=== PATIENT | female | born 1995 | race African-American/Black ===

== ENCOUNTER 2017-01-16 22:49 | Emergency (ER) | payer SELFPAY ==
[~2017-01-16] VITALS: Ht 160 cm; Wt 53.5 kg
[2017-01-16] MEDS ORDERED: ALBUTEROL SULFATE 2.5 MG/3 ML NEBU. CONT NEB ONE (23:30)
[2017-01-16] MEDS ORDERED: IPRATROPIUM BROMIDE 0.5 MG/2.5 ML NEBU. NEB ONE (23:30)
[2017-01-17] MEDS ORDERED: predniSONE 20 MG TABLET PO ONE (00:15)
[2017-01-17 02:16] VITALS: BP 107/55
--- NOTE | 2017-01-17 04:22 | PHYS DOC ---
Past Medical History Past Medical History: Ectopic Past Surgical History: Other Additional Past Surgical Histo: miscarriage Alcohol Use: None Drug Use: None Adult General Chief Complaint Chief Complaint: ASTHMA HPI HPI Patient is a 21 year old female presents with shortness of breath, cough. Symptoms began 2 days Progressed. Patient's Nonsmoker Denies History of Asthma or Chronic Lung Disease. Patient Reports Chest Wall Pain Worse with Deep Breathing and Cough. No Fever Chills or Sweats. No Leg Pain or Swelling. No Other Acute Symptoms or Complaints. is a nonsmoker, but reports secondhand smoke at work. Review of Systems Review of Systems Review symptoms as per history of present illness. All other review symptoms are negative. Current Medications Current Medications Current Medications Medications (Trade) Dose Ordered Sig/Ada Start Time Stop Time Status Last Admin Dose Admin Albuterol Sulfate (Ventolin Neb Soln) 10 mg 1X ONCE 01/16/17 23:30 01/16/17 23:31 DC 01/16/17 23:37 10 MG Ipratropium [place] (Atrovent) 0.5 mg 1X ONCE 01/16/17 23:30 01/16/17 23:31 DC 01/16/17 23:37 0.5 MG Prednisone (Prednisone) 60 mg 1X ONCE 01/17/17 00:15 01/17/17 00:16 DC 01/17/17 00:15 60 MG Allergies Allergies Allergies Coded Allergies Type Severity Reaction Last Updated Verified No Known Drug Allergies 01/16/17 No Physical Exam Physical Exam Constitutional: Well developed, well nourished, no acute distress, non-toxic appearance. [] HENT: Normocephalic, atraumatic, bilateral external ears normal, oropharynx moist, no oral exudates, nose and congestion with clear rhinorrhea. [] Eyes: PERRLA, EOMI, conjunctiva normal, no discharge. [] Neck: Normal range of motion, no tenderness, supple, no stridor. [] Cardiovascular:Heart rate regular rhythm, no murmur [] Lungs & Thorax: For his nonlabored, diminished breath sounds bilaterally with coarse expiratory wheezes. No rales auscultated.[] Abdomen: Bowel sounds normal, soft, no tenderness, no masses, no pulsatile masses. [] Skin: Warm, dry, no erythema, no rash. [] Back: No tenderness, no CVA tenderness. [] Extremities: No tenderness, no cyanosis, no clubbing, ROM intact, no edema. [] Neurologic: Alert and oriented X 3, normal motor function, normal sensory function, no focal deficits noted. [] Psychologic: Affect normal, judgement normal, mood normal. [] Current Patient Data Vital Signs Vital Signs Date Time Temp Pulse Resp B/P (MAP) Pulse Ox O2 Delivery O2 Flow Rate FiO2 01/17/17 02:16 100 22 107/55 (72) 100 01/16/17 23:30 Nasal Cannula 4.0 01/16/17 22:50 98.4 98.4 Lab Values Laboratory Tests Test 01/16/17 22:22 POC Urine HCG, Qualitative Hcg negative (Negative) EKG EKG [] Radiology/Procedures Radiology/Procedures [CHest x-ray: No acute cardiopulmonary disease.] Course & Med Decision Making Course & Med Decision Making Pertinent Labs and Imaging studies reviewed. (See chart for details) [Realized breathing treatment, steroids given with significant clinical improvement. Supportively with PCP follow-up. Return precautions reviewed. Courtesy work note provided.] Dragon Disclaimer Dragon Disclaimer This electronic medical record was generated, in whole or in part, using a voice recognition dictation system. Departure Departure Impression: Primary Impression: Acute bronchitis with bronchospasm Disposition: HOME, SELF-CARE Condition: GOOD Patient Instructions: Bronchitis, [id number], Bronchospasm, [id number] Additional Instructions: Please go home and rest. Stay indoors for the next 2 days, take steroids as directed and use use albuterol inhaler 2 puffs every 4 hours as needed. Follow- up with your local primary care physician early next week for reevaluation. In the meantime, if you develop new or worsening symptoms return to the ED. MELISSA HOU DO Jan 17, 2017 04:22
--- NOTE | 2017-01-17 07:26 | RAD ---
Chest, 2 views, 01/17/2017: History: Shortness of breath The heart size is normal. The lungs are clear. There is no evidence of pleural fluid. IMPRESSION: No acute cardiopulmonary abnormality is detected.
--- NOTE | 2017-01-17 07:55 | EKG ---
[facility] [address] [place] [address] Test Date: 2017-01-16 Test Time: 22:59:53 Pat Name: NATALEE FINCH Department: Room: Gender: F [employer]: : 1995 Requested By: MELISSA HOU Order Number: [id number] Reading MD: Marianna Reyes Measurements Intervals [place] Rate: 77 P: 20 NE: 154 QRS: -23 QRSD: 80 T: 10 QT: 392 QTc: 445 Interpretive Statements SINUS RHYTHM NORMAL EKG Electronically Signed On 01-19-2017 10:13:52 CDT by Marianna Reyes
== END 2017-01-17 02:20 | disposition home or self-care (01) ==
LOC: ER 22:49
DX: J20.9 Acute bronchitis, unspecified (principal)
CPT/HCPCS: 71020; 81025; 93005; 94250; 94644; 99285; J7512; J7613; J7644; 94640

== ENCOUNTER 2017-05-14 20:14 | Emergency (ER) | payer BC ==
[2017-05-14 21:17] LABS: URINE HCG POC HCG NEGATIVE (Negative)
[2017-05-14 21:17] LABS: ADD MAN DIFF? NO
[2017-05-14 21:22] LABS: BASO % 0 % (0-3); BILIRUBIN,URINE NEGATIVE (NEG); CLARITY,URINE CLEAR; COLOR,URINE YELLOW; EOS # 0.2 x10^3/uL (0.0-0.7); EOS % 3 % (0-3); GLUCOSE,URINE NEGATIVE (NEG); HEMATOCRIT 44.1 % (36.0-47.0); HEMOGLOBIN 14.2 g/dL (12.0-15.5); LYMPH # 1.9 x10^3/uL (1.0-4.8); LYMPH % 28 % (24-48); MEAN CORPUSCULAR HEMOGLOBIN 27 pg (25-35); MEAN CORPUSCULAR HGB CONC 32 g/dL (31-37); MEAN CORPUSCULAR VOLUME 83 fL (79-100); MONO # 0.4 x10^3/uL (0.0-1.1); MONO % 6 % (0-9); NEUT # 4.4 x10^3uL (1.8-7.7); NEUT % 63 % (31-73); NITRITE,URINE NEGATIVE (NEG); PLATELET COUNT 138 x10^3/uL (140-400); PROTEIN,URINE NEGATIVE (NEG-TRACE); RED BLOOD COUNT 5.34 x10^6/uL (3.50-5.40); RED CELL DISTRIBUTION WIDTH 13.5 % (11.5-14.5); UROBILINOGEN,URINE 0.2 mg/dL (0.2 mg/dL); WHITE BLOOD COUNT 6.9 x10^3/uL (4.0-11.0)
[2017-05-14 21:29] LABS: BACTERIA,URINE MODERATE /HPF (0-FEW); RBC,URINE OCC /HPF (0-2); SQUAMOUS EPITHELIAL CELL,UR MOD /LPF
[2017-05-14 21:40] LABS: ANION GAP 10 (6-14); BLOOD UREA NITROGEN 11 mg/dL (7-20); BUN/CREATININE RATIO 16 (6-20); CALCIUM 8.9 mg/dL (8.5-10.1); CARBON DIOXIDE 26 mmol/L (21-32); CHLORIDE 107 mmol/L (98-107); CREATININE 0.7 mg/dL (0.6-1.0); GFR 130.4; GLUCOSE 82 mg/dL (70-99); SODIUM 143 mmol/L (136-145)
[2017-05-14 21:44] LABS: ALBUMIN 3.9 g/dL (3.4-5.0); ALBUMIN/GLOBULIN RATIO 1.3 (1.0-1.7); ALK PHOS 77 U/L (46-116); ALT (SGPT) 21 U/L (14-59); AST (SGOT) 19 U/L (15-37); TOTAL BILIRUBIN 0.3 mg/dL (0.2-1.0); TOTAL PROTEIN 6.8 g/dL (6.4-8.2)
[2017-05-14] MEDS: KETOROLAC 30 MG/ML INJ. IV (21:44)
[2017-05-14] MEDS: ONDANSETRON PF 4 MG/2 ML VIAL. IV (21:44)
[2017-05-14 22:10] LABS: PLT ESTIMATE ADEQUATE (ADEQUATE)
[2017-05-16 19:12] LABS: CHLAMYDIA PROBE Negative (Negative); GC PROBE Negative (Negative)
== END 2017-05-15 | disposition home or self-care (01) ==
LOC: ER 05-15
DX: N76.0 Acute vaginitis (principal); B96.89 Other specified bacterial agents as the cause of diseases classified elsewhere
CPT/HCPCS: 36415; 76856; 80053; 81001; 81025; 85025; 87086; 87491; 87591; 96374; 96375; 99285-25; J1885; J2405; Q0111

== ENCOUNTER 2017-05-26 14:52 | Emergency (ER) | payer BC | END 2017-05-26 15:26 | disposition home or self-care (01) | LOC: ER 14:52 | DX: H65.193 Other acute nonsuppurative otitis media, bilateral (principal); H60.391 Other infective otitis externa, right ear | CPT/HCPCS: 99283 ==